=== PATIENT | male | born 1955 | race Two or more races ===

== ENCOUNTER 2025-03-25 07:08 | Inpatient (IN) | payer OTHER ==
[~2025-03-25] VITALS: Ht 170.2 cm; Wt 72.6 kg
--- NOTE | 2025-03-25 07:21 | NUR ---
SE RECIBE PACIENTE ALERTA Y ORIENTADO X3 EL CUAL REFIERE VENIR A CAUSA DE QUE DR. FLORES LO ENVIO PARA CIRUGIA COLO RECTAL EL TRUONG PROXIMO.
[2025-03-25] MEDS ORDERED: 0.9 % SODIUM CHLORIDE 1,000 ML IV ONE (07:45)
[2025-03-25] MEDS ORDERED: FAMOTIDINE/PF 20 MG/2 ML VIAL IV ONE (07:45)
[2025-03-25] MEDS ORDERED: FAMOTIDINE/PF 20 MG/2 ML VIAL ONE (07:46)
[2025-03-25 09:01] LABS: BASO % 0.5 % (0.1-1.2); EOS # 0.08 (0.04-0.54); EOS % 1.9 % (0.7-7.0); LYMPH # 0.78 (1.18-3.74); LYMPH % 18.7 % (19.3-53.1); MEAN PLATELET VOLUME 8.90 fl (9.4-12.4); MONO # 0.42 (0.24-0.82); MONO % 10.0 % (4.7-12.5); NEUT # 2.86 (1.56-6.13); NEUT % 68.4 % (34.0-71.1); RED CELL DISTRIBUTION WIDTH 22.3 % (11.6-14.4)
--- NOTE | 2025-03-25 09:17 | NUR ---
MEDICO EVALUA PACIENTE, SE LE ADMINISTRA MEDICAMENTOS KARTIK ORDEN MEDICA Y SE LE SIDNEY MUESTRAS DE LABORATORIOS. SE LE ORIENTA A PACIENTE Y PACIENTE REFIERE ENTENDER.
[2025-03-25 09:19] LABS: INR 1.09
[2025-03-25 09:29] LABS: ALT/SGPT 21.0 U/L (12-78); AST/SGOT 38.0 U/L (15-37); BILIRUBIN TOTAL 0.59 mg/dL (0.3-1.2); BUN CREA RATIO 9.0 (7.0-25.0); CREATININE SERUM 0.68 mg/dL (0.70-1.30); GFR 115.96; GLOBULINA 3.7 G/DL (2.4-3.5); GLUCOSE FASTING 106.0 mg/dL (65-100); OSMOLALITY SERUM 289.0 MOSM/KG (275-295)
[2025-03-25 12:01] LABS: URINE APPEARANCE Clear; URINE BILIRRUBIN Negative (NEGATIVE); URINE BLOOD Negative; URINE COLOR Yellow; URINE GLUCOSE Negative (NEGATIVE); URINE KETONE Negative (NEGATIVE); URINE LEUKOCYTE Negative; URINE NITRATE Negative; URINE PROTEIN Negative (NEGATIVE); URINE UROBILINOGEN 0.2 E.U./dl
[2025-03-25 12:09] LABS: URINE BACTERIA 2.2 uL (0.0-1933); URINE CAST 0.00 uL (0.0-1.40); URINE EPITHELIAL CELLS 0.7 uL (0.0-38.8); URINE RBC 1.1 uL (0.0-20.8); URINE WBC 1.0 uL (0.0-23.2)
--- NOTE | 2025-03-25 14:02 | NUR ---
MEDICO LE ORDENA 2 UNIDADES DE PRBC, SE LE ORIENTA PACIENTE, FIRMA CONSENTIMIENTO DE TRANSFUCCION DE CLOVER SE LE SIDNEY MUESTRAS DE [place] Y SE LE ENTREGA AL LABORATORIO. EN ESPERA A QUE LLEGUE CLOVER PARA SER TRANSFUNDIDO.
[2025-03-25] MEDS ORDERED: ONDANSETRON HCL 2 MG/ML VIAL IV PRN (14:45)
[2025-03-25] MEDS ORDERED: FAMOTIDINE/PF 20 MG/2 ML VIAL IV SCH (21:00)
[2025-03-26 02:53] VITALS: BP 136/73; O2SAT 94
[2025-03-26 09:00] VITALS: BP 127/77; O2SAT 99
[2025-03-26] MEDS ORDERED: 0.9 % SODIUM CHLORIDE 1,000 ML IV SCH (12:30)
[2025-03-26] MEDS ORDERED: PEG3350/SOD SULF,BICARB,CL/KCL 4,000 ML GALLON PO NR (12:30)
[2025-03-26 15:00] VITALS: BP 144/77; O2SAT 98
[2025-03-27 00:40] LABS: BASO % 0.4 % (0.1-1.2); EOS # 0.19 (0.04-0.54); EOS % 2.6 % (0.7-7.0); LYMPH # 1.19 (1.18-3.74); LYMPH % 16.3 % (19.3-53.1); MEAN PLATELET VOLUME 9.80 fl (9.4-12.4); MONO # 0.89 (0.24-0.82); NEUT # 4.97 (1.56-6.13); NEUT % 68.2 % (34.0-71.1); RED CELL DISTRIBUTION WIDTH 21.7 % (11.6-14.4)
[2025-03-27 00:41] LABS: MONO % 12.2 % (4.7-12.5)
[2025-03-27 01:23] VITALS: BP 141/74; O2SAT 98
[2025-03-27 08:00] VITALS: BP 158/79; O2SAT 97
[2025-03-27] MEDS ORDERED: LIDOCAINE HCL 1%/EPINEPHRINE 20ML VIAL IJ ONE (11:04)
[2025-03-27] MEDS ORDERED: BUPIVACAINE HCL/MPF 0.5% 30ML VIAL ONE (11:04)
[2025-03-27] MEDS ORDERED: CEFTRIAXONE SODIUM 2,000 MG VIAL ONE (11:05)
[2025-03-27] MEDS ORDERED: METRONIDAZOLE/SODIUM CHLORIDE 500 MG/100 ML PIGGYBACK IV ONE (11:05)
[2025-03-27] MEDS ORDERED: SUGAMMADEX SODIUM 200 MG/2 ML VIAL IV ONE (14:56)
[2025-03-27] MEDS ORDERED: MORPHINE SULFATE 4 MG/ML VIAL IV PRN (15:15)
[2025-03-27] MEDS ORDERED: DEXTROSE 50 % IN WATER 0.5 G/ML DISP.SYRIN IV PRN (15:15)
[2025-03-27] MEDS ORDERED: ONDANSETRON HCL 2 MG/ML VIAL IV PRN (15:15)
[2025-03-27] MEDS ORDERED: OxyCODONE HCL 5 MG TABLET (ROXICODONE) PO PRN (15:15)
[2025-03-27] MEDS ORDERED: 0.9 % SODIUM CHLORIDE 1,000 ML IV SCH (15:15)
[2025-03-27 16:00] VITALS: BP 109/65; O2SAT 95
[2025-03-27] MEDS ORDERED: GABAPENTIN 300 MG CAPSULE PO SCH (17:00)
[2025-03-27] MEDS ORDERED: HYOSCYAMINE SULFATE 0.125 MG TAB.SUBL SL SCH (17:00)
[2025-03-27 17:04] LABS: BASO % 0.1 % (0.1-1.2); EOS # 0.01 (0.04-0.54); EOS % 0.1 % (0.7-7.0); LYMPH # 0.42 (1.18-3.74); LYMPH % 4.9 % (19.3-53.1); MEAN PLATELET VOLUME 8.80 fl (9.4-12.4); MONO # 0.29 (0.24-0.82); MONO % 3.4 % (4.7-12.5); NEUT # 7.78 (1.56-6.13); NEUT % 91.1 % (34.0-71.1); RED CELL DISTRIBUTION WIDTH 22.0 % (11.6-14.4)
[2025-03-27 17:36] LABS: BUN CREA RATIO 6.0 (7.0-25.0); CREATININE SERUM 0.63 mg/dL (0.70-1.30); GFR 126.65; GLUCOSE FASTING 160.0 mg/dL (65-100); OSMOLALITY SERUM 280.0 MOSM/KG (275-295)
[2025-03-27] MEDS ORDERED: MAGNESIUM SULFATE IN WATER 4 GM/100 ML PIGGYBACK IV NR (20:00)
[2025-03-27] MEDS ORDERED: ACETAMINOPHEN 500 MG GEL..CAP PO SCH (20:00)
[2025-03-27] MEDS ORDERED: FAMOTIDINE/PF 20 MG/2 ML VIAL IV PUSH SCH (21:00)
[2025-03-28] VITALS: BP 127/78; O2SAT 95
[2025-03-28 06:20] LABS: BASO % 0.2 % (0.1-1.2); EOS # 0.00 (0.04-0.54); EOS % 0.0 % (0.7-7.0); LYMPH # 0.33 (1.18-3.74); LYMPH % 2.6 % (19.3-53.1); MEAN PLATELET VOLUME 9.10 fl (9.4-12.4); MONO # 0.56 (0.24-0.82); MONO % 4.5 % (4.7-12.5); NEUT # 11.49 (1.56-6.13); NEUT % 92.1 % (34.0-71.1); RED CELL DISTRIBUTION WIDTH 22.5 % (11.6-14.4)
[2025-03-28 06:47] LABS: BUN CREA RATIO 10.0 (7.0-25.0); CREATININE SERUM 0.69 mg/dL (0.70-1.30); GFR 114.02; GLUCOSE FASTING 144.0 mg/dL (65-100); OSMOLALITY SERUM 274.0 MOSM/KG (275-295)
[2025-03-28 10:46] VITALS: BP 138/89; O2SAT 97
[2025-03-28 15:00] VITALS: BP 143/83; O2SAT 100
[2025-03-29] VITALS: BP 120/77; O2SAT 96
[2025-03-29 08:00] VITALS: BP 120/78; O2SAT 96
[2025-03-29] MEDS ORDERED: ENOXAPARIN SODIUM 40 MG/0.4 ML SYRINGE SUBCUTANEO SCH (09:00)
[2025-03-29] MEDS ORDERED: PIPERACILLIN/TAZOBACTAM SODIUM 3.375 GM in DEXTROSE 5 % IN WATER 100 ML IV SCH (14:00)
[2025-03-29 16:43] LABS: BUN CREA RATIO 23.0 (7.0-25.0); CREATININE SERUM 0.82 mg/dL (0.70-1.30); GFR 93.43; GLUCOSE FASTING 111.0 mg/dL (65-100); OSMOLALITY SERUM 275.0 MOSM/KG (275-295)
[2025-03-29 17:04] LABS: BASO % 0.1 % (0.1-1.2); EOS # 0.01 (0.04-0.54); EOS % 0.1 % (0.7-7.0); LYMPH # 0.67 (1.18-3.74); LYMPH % 4.8 % (19.3-53.1); MEAN PLATELET VOLUME 10.10 fl (9.4-12.4); MONO # 0.70 (0.24-0.82); MONO % 5.1 % (4.7-12.5); NEUT # 12.36 (1.56-6.13); NEUT % 89.3 % (34.0-71.1); RED CELL DISTRIBUTION WIDTH 22.9 % (11.6-14.4)
[2025-03-29 17:13] VITALS: BP 114/81; O2SAT 96
[2025-03-29] MEDS ORDERED: OxyCODONE HCL 5 MG TABLET (ROXICODONE) PO PRN (20:45)
[2025-03-29] MEDS ORDERED: MORPHINE SULFATE 4 MG/ML VIAL IV PRN (20:45)
[2025-03-30 00:45] VITALS: BP 133/78; O2SAT 95
[2025-03-30 08:00] VITALS: BP 156/90; O2SAT 97
[2025-03-30 16:56] VITALS: BP 145/87; O2SAT 97
[2025-03-30] MEDS ORDERED: METOCLOPRAMIDE HCL 5 MG/ML VIAL IV SCH (20:37)
[2025-03-30] MEDS ORDERED: ENALAPRILAT DIHYDRATE 1.25 MG/ML VIAL IV PRN (20:45)
[2025-03-30] MEDS ORDERED: KETOROLAC TROMETHAMINE 30 MG VIAL IV PRN (20:45)
[2025-03-30 22:31] LABS: CHOL HDL RATIO 3.1 (0-5.0); HDL 44.0 mg/dl (40-60); LDL 67.0 mg/dl (0-130); VLDL 24.0 (0-39)
[2025-03-31 00:36] VITALS: BP 148/80; O2SAT 98
[2025-03-31 07:17] LABS: BASO % 0.1 % (0.1-1.2); EOS # 0.01 (0.04-0.54); EOS % 0.1 % (0.7-7.0); LYMPH # 0.80 (1.18-3.74); LYMPH % 9.0 % (19.3-53.1); MEAN PLATELET VOLUME 9.70 fl (9.4-12.4); MONO # 0.78 (0.24-0.82); MONO % 8.8 % (4.7-12.5); NEUT # 7.23 (1.56-6.13); NEUT % 81.7 % (34.0-71.1); RED CELL DISTRIBUTION WIDTH 22.6 % (11.6-14.4)
[2025-03-31 07:47] LABS: ALT/SGPT 11.0 U/L (12-78); AST/SGOT 16.0 U/L (15-37); BILIRUBIN TOTAL 1.09 mg/dL (0.3-1.2); BUN CREA RATIO 26.0 (7.0-25.0); CREATININE SERUM 0.78 mg/dL (0.70-1.30); GFR 98.98; GLOBULINA 3.2 G/DL (2.4-3.5); GLUCOSE FASTING 113.0 mg/dL (65-100); OSMOLALITY SERUM 296.0 MOSM/KG (275-295)
[2025-03-31 08:31] VITALS: BP 151/86; O2SAT 97
[2025-03-31] MEDS ORDERED: PHENOL 177 ML BOTTLE MM SCH (13:00)
[2025-03-31 16:23] VITALS: BP 148/89; O2SAT 95
[2025-03-31] MEDS ORDERED: AA 4.25%/CAL/LYTES/DEXT 5% 1,000 ML PERIFERAL SCH (17:00)
[2025-04-01 00:27] VITALS: BP 163/84; O2SAT 96
[2025-04-01 08:00] VITALS: BP 149/76; O2SAT 98
[2025-04-01] MEDS ORDERED: MORPHINE SULFATE 4 MG/ML CARTRIDGE IV PRN (08:30)
[2025-04-01 16:00] VITALS: BP 149/80; O2SAT 97
[2025-04-02] VITALS: BP 144/69; O2SAT 98
[2025-04-02 06:45] LABS: BASO % 0.2 % (0.1-1.2); EOS # 0.20 (0.04-0.54); EOS % 4.5 % (0.7-7.0); LYMPH # 0.72 (1.18-3.74); LYMPH % 16.3 % (19.3-53.1); MEAN PLATELET VOLUME 9.50 fl (9.4-12.4); MONO # 0.61 (0.24-0.82); NEUT # 2.87 (1.56-6.13); NEUT % 65.0 % (34.0-71.1); RED CELL DISTRIBUTION WIDTH 21.5 % (11.6-14.4)
[2025-04-02 06:47] LABS: MONO % 13.8 % (4.7-12.5)
[2025-04-02 07:08] LABS: ALT/SGPT 27.0 U/L (12-78); AST/SGOT 35.0 U/L (15-37); BILIRUBIN TOTAL 1.15 mg/dL (0.3-1.2); BUN CREA RATIO 13.0 (7.0-25.0); CREATININE SERUM 0.6 mg/dL (0.70-1.30); GFR 133.98; GLOBULINA 3.1 G/DL (2.4-3.5); GLUCOSE FASTING 101.0 mg/dL (65-100); OSMOLALITY SERUM 278.0 MOSM/KG (275-295)
[2025-04-02 08:16] LABS: INR 1.12
[2025-04-02 08:32] VITALS: BP 148/85; O2SAT 97
[2025-04-02 15:00] VITALS: BP 126/80; O2SAT 98
[2025-04-02] MEDS ORDERED: SUGAMMADEX SODIUM 200 MG/2 ML VIAL IV ONE (15:15)
[2025-04-02] MEDS ORDERED: LACTOBACILLUS ACIDOPHILUS 1 CAP CAP PO SCH (17:00)
[2025-04-03 01:00] VITALS: BP 117/69; O2SAT 98
[2025-04-03 08:00] VITALS: BP 118/77; O2SAT 99
[2025-04-03] MEDS ORDERED: POTASSIUM BICARBONATE/CIT AC 25 MEQ TABLET.EFF PO SCH (09:00)
[2025-04-03] MEDS ORDERED: HYOSCYAMINE0.125 M1 SL (10:32)
[2025-04-03] MEDS ORDERED: TRAM1TAB98 PO (10:33)
[2025-04-03] MEDS ORDERED: PEPCID AC20 MG PO (10:33)
[2025-04-03] MEDS ORDERED: AMOX1TAB5 PO (10:33)
== END 2025-04-03 13:25 | disposition home or self-care (01) | DRG 803 ==
LOC: ER 07:08 → SURH 14:47
PROVIDERS: General Practice; Internal Medicine; Internal Medicine Infectious Disease; Surgery; ADMIT Surgery; ATTEND Surgery
PROC: 0DBF4ZZ Excision of Right Large Intestine, Percutaneous Endoscopic Approach (ICD-10-PCS; 2025-03-27)
PROC: 07BC4ZZ Excision of Pelvis Lymphatic, Percutaneous Endoscopic Approach (ICD-10-PCS; principal; 2025-03-27 12:15)
DX: D64.9 Anemia, unspecified (principal); C18.2 Malignant neoplasm of ascending colon; D72.829 Elevated white blood cell count, unspecified